=== PATIENT | female | born 1995 | race Hispanic/Latino ===

== ENCOUNTER 2016-12-19 13:16 | Emergency (ER) | payer OTHER ==
[~2016-12-19] VITALS: Ht 157.5 cm; Wt 52.0 kg
[~2016-12-19 13:16] MED LIST: BACTRIM,SEPT1 TABLET PO; BENTYL10 MG PO; CIPRO500 MG PO; MEDROXYPRO150 MG/1 M; ULTRAM50 MG PO; ZANTAC150 MG PO; ZOFRAN ODT4 MG PO; ZOFRAN4 MG PO
[2016-12-19 14:24] LABS: ADD MIUA? YES; BILIRUBIN NEGATIVE; BLOOD MODERATE; COLOR YELLOW ((YELLOW)); GLUCOSE (STRIP) NEGATIVE; KETONES 20; LEUKOCYTES SMALL; NITRITE NEGATIVE; PROTEIN (STRIP) 30; SPECIFIC GRAVITY 1.024 (1.000-1.030); UROBILINOGEN 0.2 MG/DL (0.2-1.0)
[2016-12-19 14:38] LABS: HEMATOCRIT 39.3 % (36.0-46.0); MCH 30.9 PG (29.0-34.0); MCHC 35.9 G/DL (30.0-36.0); MEAN PLAT.VOLUME 9.8 uM^3 (9.5-12.4); PLATELET COUNT 263 K/uL (156-360); RBC DIS.WIDTH-CV 12.3 % (11.8-14.6); RBC DIS.WIDTH-SD 37.7 % (39-53); RED BLOOD COUNT 4.57 M/uL (3.80-5.20); WHITE BLOOD COUNT 13.7 K/uL (4.1-10.2)
[2016-12-19 14:39] LABS: BACTERIA RARE /HPF; EPITHELIAL CELLS 4+ /HPF; MUCUS 1+ /LPF; UCUL ADDED? NO
[2016-12-19] MEDS ORDERED: REGLAN5 MG PO (14:45)
[2016-12-19 14:48] LABS: CHLORIDE 100 mEq/L (99-109); POTASSIUM 3.4 mEq/L (3.7-5.4); SODIUM 136 mEq/L (136-147)
[2016-12-19 14:50] LABS: GLUCOSE 84 mg/dL (70-99)
[2016-12-19 14:52] LABS: ANION GAP 11 MEQ/L (2-14)
[2016-12-19 14:54] LABS: ALKALINE PHOSPHATASE 46 IU/L (3-129); GFR ESTIMATE (CALCULATED) > 59 mL/min/
[2016-12-19 14:55] LABS: UREA NITROGEN (BUN) 13 mg/dL (9-23)
[2016-12-19 14:58] LABS: QUANTITATIVE HCG < 4.0 MIU/ML
[2016-12-19] MEDS ORDERED: PHENERGAN25 MG PR (15:02)
[2016-12-19 15:33] VITALS: BP 125/77
== END 2016-12-19 15:34 | disposition home or self-care (01) ==
LOC: EME 13:16
DX: R11.2 Nausea with vomiting, unspecified (principal); Z88.6 Allergy status to analgesic agent
CPT/HCPCS: 80053; 81003; 84702; 85027; 99281; 99284; J2550

== ENCOUNTER 2017-01-09 07:23 | Emergency (ER) | payer OTHER ==
[~2017-01-09] VITALS: Ht 157.5 cm; Wt 50.7 kg
[~2017-01-09 07:23] MED LIST changes: +PHENERGAN25 MG PR; +REGLAN5 MG PO
[2017-01-09 08:03] LABS: HEMATOCRIT 42.1 % (36.0-46.0); MCH 30.3 PG (29.0-34.0); MCHC 34.4 G/DL (30.0-36.0); MCV 87.9 FL (83-99); MEAN PLAT.VOLUME 9.5 uM^3 (9.5-12.4); PLATELET COUNT 301 K/uL (156-360); RBC DIS.WIDTH-CV 12.9 % (11.8-14.6); RBC DIS.WIDTH-SD 41.7 % (39-53); RED BLOOD COUNT 4.79 M/uL (3.80-5.20); WHITE BLOOD COUNT 13.2 K/uL (4.1-10.2)
[2017-01-09 08:04] LABS: ADD MIUA? YES; BILIRUBIN NEGATIVE; BLOOD SMALL; COLOR AMBER ((YELLOW)); GLUCOSE (STRIP) NEGATIVE; KETONES 20; LEUKOCYTES TRACE; NITRITE NEGATIVE; PROTEIN (STRIP) 100; SPECIFIC GRAVITY 1.028 (1.000-1.030); UROBILINOGEN 0.2 MG/DL (0.2-1.0)
[2017-01-09 08:18] LABS: BACTERIA NONE SEEN /HPF; EPITHELIAL CELLS 4+ /HPF; MUCUS 4+ /LPF; RED BLOOD CELLS 20-30 /HPF (0-5); WHITE BLOOD CELLS 15-20 /HPF (0-5)
[2017-01-09 08:25] LABS: CHLORIDE 98 mEq/L (99-109); POTASSIUM 3.5 mEq/L (3.7-5.4); SODIUM 134 mEq/L (136-147)
[2017-01-09 08:27] LABS: GLUCOSE 97 mg/dL (70-99)
[2017-01-09 08:28] LABS: ANION GAP 16 MEQ/L (2-14)
[2017-01-09 08:30] LABS: ALKALINE PHOSPHATASE 51 IU/L (3-129)
[2017-01-09 08:31] LABS: GFR ESTIMATE (CALCULATED) > 59 mL/min/
[2017-01-09 08:32] LABS: UREA NITROGEN (BUN) 17 mg/dL (9-23)
[2017-01-09 08:34] LABS: LIPASE 59 U/L (1.0-51.0)
[2017-01-09] MEDS ORDERED: ZOFRAN ODT4 MG PO (08:44)
[2017-01-09 09:21] LABS: QUANTITATIVE HCG < 4.0 MIU/ML
[2017-01-09 09:56] VITALS: BP 123/77
== END 2017-01-09 10:13 | disposition home or self-care (01) ==
LOC: EME 07:23
PROVIDERS: Nurse Practitioner Family
DX: R11.2 Nausea with vomiting, unspecified (principal); E86.0 Dehydration; R74.8 Abnormal levels of other serum enzymes; F10.10 Alcohol abuse, uncomplicated
CPT/HCPCS: 80053; 81003; 83690; 84702; 85027; 99281; 99285; J1885; J7030

== ENCOUNTER 2017-04-14 12:23 | Emergency (ER) | payer OTHER ==
[~2017-04-14] VITALS: Ht 157.5 cm; Wt 51.1 kg
[2017-04-14 13:03] LABS: ADD MIUA? YES; BILIRUBIN NEGATIVE; BLOOD SMALL; COLOR AMBER ((YELLOW)); GLUCOSE (STRIP) NEGATIVE; KETONES 5; LEUKOCYTES TRACE; NITRITE NEGATIVE; PROTEIN (STRIP) 100; UROBILINOGEN 0.2 MG/DL (0.2-1.0)
[2017-04-14 13:15] LABS: BACTERIA NONE SEEN /HPF; EPITHELIAL CELLS 3+ /HPF; MUCUS 3+ /LPF; RED BLOOD CELLS 0-5 /HPF (0-5); UCUL ADDED? NO
[2017-04-14 13:21] LABS: HEMATOCRIT 37.7 % (36.0-46.0); MCH 31.2 PG (29.0-34.0); PLATELET COUNT 195 K/uL (156-360); RBC DIS.WIDTH-SD 44.4 % (39-53); WHITE BLOOD COUNT 13.3 K/uL (4.1-10.2)
[2017-04-14 13:33] LABS: CHLORIDE 106 mEq/L (99-109); POTASSIUM 3.1 mEq/L (3.7-5.4); SODIUM 136 mEq/L (136-147)
[2017-04-14 13:35] LABS: GLUCOSE 116 mg/dL (70-99)
[2017-04-14 13:37] LABS: ANION GAP 8 MEQ/L (2-14); TOTAL BILIRUBIN 0.5 mg/dL (0.0-1.0)
[2017-04-14 13:39] LABS: ALKALINE PHOSPHATASE 45 IU/L (3-129); GFR ESTIMATE (CALCULATED) > 59 mL/min/
[2017-04-14 13:40] LABS: UREA NITROGEN (BUN) 15 mg/dL (9-23)
[2017-04-14 13:52] LABS: QUANTITATIVE HCG 1480.7 MIU/ML
[2017-04-14] MEDS ORDERED: KEFLEX500 MG PO (17:21)
[2017-04-14 17:52] VITALS: BP 111/61
[2017-04-17 12:08] LABS: CHLAMYDIA TRACHOMATIS POSITIVE; NEISSERIA GONORRHOEAE NEGATIVE
== END 2017-04-14 17:54 | disposition home or self-care (01) ==
LOC: EME 12:23
PROVIDERS: Nurse Practitioner Family
DX: O23.11 Infections of bladder in pregnancy, first trimester (principal); N30.90 Cystitis, unspecified without hematuria; Z3A.01 Less than 8 weeks gestation of pregnancy; Z87.440 Personal history of urinary (tract) infections
CPT/HCPCS: 76801; 80053; 81003; 84702; 85027; 87210; 87491; 87591; 99281; 99283; J7030

== ENCOUNTER 2017-08-02 05:28 | Emergency (ER) | payer OTHER ==
[~2017-08-02] VITALS: Ht 160 cm; Wt 52.1 kg
[~2017-08-02 05:28] MED LIST changes: +KEFLEX500 MG PO
[2017-08-02 06:12] LABS: EOSINOPHIL (%) 0 % (0-5); IMMATURE GRANULOCYTE (%) 0.2 % (0.0-0.7); INSTRUMENT ABS NEUTROPHIL CT 6.9 K/uL; LYMPHOCYTE COUNT 1.7 K/uL (1.0-2.8); MCH 31.3 PG (29.0-34.0); MCHC 33.9 G/DL (30.0-36.0); MCV 92.2 FL (83-99); MEAN PLAT.VOLUME 9.6 uM^3 (9.5-12.4); MONOCYTE (%) 2.5 % (3-12); MONOCYTE COUNT 0.2 K/uL (0-0.8); NEUTROPHIL (%) 77.6 % (45-76); NEUTROPHIL COUNT 6.9 K/uL (1.8-6.4); PLATELET COUNT 157 K/uL (156-360); RBC DIS.WIDTH-CV 13.3 % (11.8-14.6); RBC DIS.WIDTH-SD 45.8 % (39-53); RED BLOOD COUNT 4.12 M/uL (3.80-5.20); WHITE BLOOD COUNT 8.8 K/uL (4.1-10.2)
[2017-08-02 06:22] LABS: CHLORIDE 106 mEq/L (99-109); POTASSIUM 3.8 mEq/L (3.7-5.4); SODIUM 138 mEq/L (136-147)
[2017-08-02 06:25] LABS: GLUCOSE 132 mg/dL (70-99)
[2017-08-02 06:26] LABS: ANION GAP 13 MEQ/L (2-14)
[2017-08-02 06:27] LABS: TOTAL BILIRUBIN 0.5 mg/dL (0.0-1.0)
[2017-08-02 06:28] LABS: ALKALINE PHOSPHATASE 42 IU/L (3-129); GFR ESTIMATE (CALCULATED) > 59 mL/min/
[2017-08-02 06:29] LABS: UREA NITROGEN (BUN) 15 mg/dL (9-23)
[2017-08-02 06:32] LABS: LIPASE 4 U/L (1.0-51.0)
[2017-08-02 06:38] LABS: QUANTITATIVE HCG < 4.0 MIU/ML
[2017-08-02 07:54] LABS: ADD MIUA? YES; BILIRUBIN NEGATIVE; BLOOD LARGE; GLUCOSE (STRIP) 50; KETONES 80; LEUKOCYTES TRACE; NITRITE NEGATIVE; PROTEIN (STRIP) 100; SPECIFIC GRAVITY 1.029 (1.000-1.030); UROBILINOGEN 0.2 MG/DL (0.2-1.0)
[2017-08-02 07:55] LABS: COLOR RED ((YELLOW))
[2017-08-02 08:01] LABS: BACTERIA 3+ /HPF; EPITHELIAL CELLS 2+ /HPF; MUCUS 2+ /LPF; RED BLOOD CELLS TNTC /HPF (0-5); UCUL ADDED? YES; WHITE BLOOD CELLS 30-40 /HPF (0-5)
[2017-08-02] MEDS ORDERED: CIPRO500 MG PO (08:56)
[2017-08-02] MEDS ORDERED: ZOFRAN4 MG PO ×2 (08:56→09:08)
[2017-08-02] MEDS ORDERED: BENTYL20 MG PO (08:56)
[2017-08-02 09:04] VITALS: BP 118/78
== END 2017-08-02 09:07 | disposition home or self-care (01) ==
LOC: EME 05:28
PROVIDERS: Emergency Medicine
DX: K52.9 Noninfective gastroenteritis and colitis, unspecified (principal); N39.0 Urinary tract infection, site not specified
CPT/HCPCS: 80053; 81003; 83690; 84702; 85025; 87077; 87086; 87186; 99281; 99285; J2405; J7030

== ENCOUNTER 2017-08-08 09:41 | Emergency (ER) | payer OTHER ==
[~2017-08-08] VITALS: Ht 160 cm; Wt 49.4 kg
[~2017-08-08 09:41] MED LIST changes: +BENTYL20 MG PO
[2017-08-08 10:30] LABS: HEMATOCRIT 44.6 % (36.0-46.0); MCH 31.4 PG (29.0-34.0); MCHC 35.9 G/DL (30.0-36.0); MCV 87.5 FL (83-99); MEAN PLAT.VOLUME 8.9 uM^3 (9.5-12.4); PLATELET COUNT 222 K/uL (156-360); RBC DIS.WIDTH-CV 12.6 % (11.8-14.6); RBC DIS.WIDTH-SD 40.5 % (39-53); WHITE BLOOD COUNT 8.5 K/uL (4.1-10.2)
[2017-08-08 10:35] LABS: POTASSIUM 3.5 mEq/L (3.7-5.4)
[2017-08-08 10:37] LABS: CHLORIDE 94 mEq/L (99-109); SODIUM 131 mEq/L (136-147)
[2017-08-08 10:38] LABS: GLUCOSE 113 mg/dL (70-99)
[2017-08-08 10:39] LABS: ANION GAP 13 MEQ/L (2-14)
[2017-08-08 10:41] LABS: ALKALINE PHOSPHATASE 46 IU/L (3-129); GFR ESTIMATE (CALCULATED) > 59 mL/min/
[2017-08-08 10:42] LABS: UREA NITROGEN (BUN) 18 mg/dL (9-23)
[2017-08-08 10:50] LABS: QUANTITATIVE HCG < 4.0 MIU/ML
[2017-08-08 11:45] LABS: ADD MIUA? YES; BILIRUBIN NEGATIVE; BLOOD MODERATE; COLOR YELLOW ((YELLOW)); GLUCOSE (STRIP) NEGATIVE; KETONES 20; LEUKOCYTES TRACE; NITRITE NEGATIVE; PROTEIN (STRIP) 100; SPECIFIC GRAVITY 1.033 (1.000-1.030); UROBILINOGEN 0.2 MG/DL (0.2-1.0)
[2017-08-08 11:47] LABS: BACTERIA NONE SEEN /HPF; EPITHELIAL CELLS 1+ /HPF; MUCUS 2+ /LPF; RED BLOOD CELLS 20-30 /HPF (0-5); UCUL ADDED? YES
[2017-08-08] MEDS ORDERED: PRILOSEC20 MG PO (13:20)
[2017-08-08] MEDS ORDERED: ZANTAC150 MG PO (13:20)
[2017-08-08] MEDS ORDERED: ZOFRAN ODT4 MG PO (13:20)
[2017-08-08] MEDS ORDERED: PHENERGAN25 MG PR (13:20)
[2017-08-08 13:42] VITALS: BP 126/75
== END 2017-08-08 13:43 | disposition home or self-care (01) ==
LOC: EME 09:41
DX: K21.9 Gastro-esophageal reflux disease without esophagitis (principal); R11.2 Nausea with vomiting, unspecified; G89.29 Other chronic pain
CPT/HCPCS: 74000; 80053; 81003; 84702; 85027; 87086; 99281; 99284

== ENCOUNTER 2018-03-16 23:05 | Emergency (ER) | payer SELFPAY ==
[~2018-03-16] VITALS: Ht 157.5 cm; Wt 51.4 kg
[~2018-03-16 23:05] MED LIST changes: +PRILOSEC20 MG PO
[2018-03-16 23:08] VITALS: BP 118/77
== END 2018-03-17 00:33 | disposition left against medical advice (07) ==
LOC: EME 23:05
DX: R11.10 Vomiting, unspecified (principal); Z53.21 Procedure and treatment not carried out due to patient leaving prior to being seen by health care provider

== ENCOUNTER 2018-03-18 13:54 | Emergency (ER) | payer OTHER ==
[~2018-03-18] VITALS: Ht 157.5 cm; Wt 52.0 kg
[2018-03-18 15:37] LABS: HEMATOCRIT 41.1 % (36.0-46.0); HEMOGLOBIN 14.9 G/DL (11.9-15.5); MCH 32.5 PG (29.0-34.0); MCHC 36.3 G/DL (30.0-36.0); MCV 89.7 FL (83-99); PLATELET COUNT 251 K/uL (156-360); RBC DIS.WIDTH-SD 39.5 % (39-53); RED BLOOD COUNT 4.58 M/uL (3.80-5.20); WHITE BLOOD COUNT 14.6 K/uL (4.1-10.2)
[2018-03-18 15:46] LABS: ALBUMIN 4.8 g/dL (3.2-4.8)
[2018-03-18 15:47] LABS: CHLORIDE 96 mEq/L (99-109); POTASSIUM 3.4 mEq/L (3.7-5.4); SODIUM 132 mEq/L (136-147)
[2018-03-18 15:49] LABS: GLUCOSE 78 mg/dL (70-99); TOTAL PROTEIN 8.1 g/dL (6.4-8.3)
[2018-03-18 15:51] LABS: TOTAL BILIRUBIN 1.1 mg/dL (0.0-1.0)
[2018-03-18 15:52] LABS: ALKALINE PHOSPHATASE 46 IU/L (3-129); D-DIMER ELISA < 150.00 ng/mLDDU (<230)
[2018-03-18 15:53] LABS: CREATININE 0.7 mg/dL (0.6-1.3); GFR ESTIMATE (CALCULATED) > 59 mL/min/
[2018-03-18 15:54] LABS: AST (GOT) 16 IU/L (2-34); UREA NITROGEN (BUN) 14 mg/dL (9-23)
[2018-03-18 15:55] LABS: ALT (GPT) 19 IU/L (3-49)
[2018-03-18 15:56] LABS: LIPASE 5 U/L (1.0-51.0)
[2018-03-18 16:03] LABS: TROP-I INTERPRETATION NEGATIVE; TROPONIN-I < 0.01 ng/mL (0.0-0.30)
[2018-03-18 16:19] LABS: QUANTITATIVE HCG 72759.6 MIU/ML
[2018-03-18 17:18] VITALS: BP 125/80
== END 2018-03-18 17:19 | disposition home or self-care (01) ==
LOC: EME 13:54
PROVIDERS: Physician Assistant
DX: O99.511 Diseases of the respiratory system complicating pregnancy, first trimester (principal); R09.1 Pleurisy; O99.282 Endocrine, nutritional and metabolic diseases complicating pregnancy, second trimester; E86.0 Dehydration; Z3A.00 Weeks of gestation of pregnancy not specified; Z88.6 Allergy status to analgesic agent
CPT/HCPCS: 71046; 80053; 83690; 84484; 84702; 85027; 85379; 93005; 99281; 99284; J7030